=== PATIENT | female | born 1960 | race Caucasian/White ===

== ENCOUNTER → 2020-06-27 17:31 | Outpatient (CLI) | payer OTHER, SELFPAY ==
[2020-06-27 18:41] LABS: Chloride 105 mmol/L (98-107); Potassium 4.6 mmoL/L (3.5-5.1); Sodium 139 mmol/L (136-145)
[2020-06-27 18:44] LABS: Anion Gap 12.6 mEq/L (5-15); Blood Urea Nitrogen 21 mg/dl (7-17); Calcium 10.2 mg/dl (8.4-10.2); Carbon Dioxide 26 mmol/L (22.0-30.0); Estimated Glomerular Filt Rate 57 ml/min (>60); GFR (African American) 69 ML/MIN (>60); Glucose 101 mg/dl (74-100)
[2020-06-27 19:00] LABS: T4 (Thyroxine) 14.3 ug/dl (5.53-11.0)
[2020-06-27 19:13] LABS: Thyroid Stimulating Hormone 0.97 uIU/mL (0.465-4.68)
== END ==
PROVIDERS: Visit Provider Family Medicine
DX: E03.9 Hypothyroidism, unspecified (principal)
CPT/HCPCS: 80048; 84436; 84443

== ENCOUNTER → 2022-01-11 16:52 | Outpatient (CLI) | payer OTHER, SELFPAY ==
[2022-01-11 15:18] LABS: Hemoglobin A1C 5.5 % (4.0-6.0)
== END ==
PROVIDERS: Visit Provider Family Medicine
DX: E11.9 Type 2 diabetes mellitus without complications (principal)
CPT/HCPCS: 83036

== ENCOUNTER → 2022-01-30 06:45 | Outpatient (CLI) | payer OTHER, SELFPAY ==
--- NOTE | 2022-01-30 06:47 | CT_ITS ---
FINAL REPORT CLINICAL HISTORY: right flank pain x1 month FINDINGS: Axial CT images of the abdomen and pelvis were obtained without intravenous contrast. Coronal reformatted images were also obtained.This study was performed with techniques to keep radiation doses as low as reasonably achievable (ALARA). Individualized dose reduction techniques using automated exposure control or adjustment of mA and/or kV according to the patient's size were employed. Abdomen: The lung bases are clear. The low-attenuation mass in the left hepatic lobe which is nonspecific. There are gallstones in the gallbladder. Moderate scarring is seen in the right kidney. There is mild scarring in the left kidney. There is a less than 3 mm nonobstructing right renal stone. A small calcification is seen in the left kidney. There are probable left renal parapelvic cysts. No adenopathy is seen. No inflammatory process is identified. Pelvis: Images of the pelvis reveal no evidence of ureteral dilation or ureteral stone. The patient is status post hysterectomy. The appendix is normal. No mass or abnormal fluid collection is identified. IMPRESSION: No obstructing renal or ureteral stone, or hydronephrosis. Nonspecific mass in the left hepatic lobe. Consider liver mass protocol CT or MRI. Reviewed, Interpreted and Dictated by Damion Gonzalez III, MD Transcribed by Lianet Ames Authenticated by Damion Gonzalez III, MD on 01/30/2022 07:51:31 AM [facility]
== END ==
PROVIDERS: PCP Family Medicine; Visit Provider Family Medicine
DX: R10.9 Unspecified abdominal pain (principal)
CPT/HCPCS: 74176

== ENCOUNTER → 2022-02-20 14:28 | Outpatient (CLI) | payer OTHER, SELFPAY ==
[2022-02-20 14:34] LABS: MANUAL DIFFERENTIAL MANUAL DIFFERENTIAL (MANUAL DIFF)
[2022-02-20 15:44] LABS: Chloride 105 mmol/L (98-107); Sodium 140 mmol/L (136-145)
[2022-02-20 15:45] LABS: Potassium 4.3 mmoL/L (3.5-5.1)
[2022-02-20 15:47] LABS: Alanine Aminotransferase 172 U/L (12-78); Alkaline Phosphatase 108 U/L (38-126); Amylase 66 U/L (30-110); Anion Gap 13.3 mEq/L (5-15); Aspartate Amino Transferase 74 U/L (14-36); Bilirubin,Total 0.6 mg/dl (0.2-1.3); Blood Urea Nitrogen 21 mg/dl (7-17); Carbon Dioxide 26 mmol/L (22.0-30.0); Estimated Glomerular Filt Rate 50 ml/min (>60); GFR (African American) 61 ML/MIN (>60); Glucose 99 mg/dl (74-100)
[2022-02-20 15:48] LABS: Albumin Level 4.4 g/dl (3.5-5.0); Albumin/Globulin Ratio 1.5 (1.1-1.8); Globulin 2.9 g/dL (1.3-3.2); Lipase 187 U/L (23-300); Total Protein,Serum 7.3 g/dl (6.3-8.2)
[2022-02-20 16:02] LABS: Basophils # 0.1 K/mm3 (0-0.2); Basophils % 1.1 % (0.1-2.0); Eosinophils # 0.1 K/mm3 (0.0-0.4); Eosinophils % 2.2 % (0.1-12.0); Hematocrit 43.5 % (37.0-47.0); Hemoglobin 14.6 g/dL (12.2-16.2); Lymphocytes # 1.4 K/mm3 (0.7-4.5); Lymphocytes % 24.4 % (10-50); Mean Corpuscular HGB Conc 33.5 g/dL (31.8-35.4); Mean Corpuscular Hemoglobin 31.4 pg (27.0-31.2); Mean Corpuscular Volume 93.5 fl (81-99); Monocytes # 0.3 K/mm3 (0.1-1.0); Neutrophils # 3.7 K/mm3 (1.8-7.8); Neutrophils % 66.4 % (37.0-80.0); Platelet Count 263 K/mm3 (142-424); Red Blood Count 4.65 M/mm3 (4.20-5.40); Red Cell Distribution Width 13.3 % (11.5-17.5); White Blood Count 5.6 K/mm3 (4.8-10.8)
[2022-02-20 18:34] LABS: Eosinophils % 3 % (0-3); Lymphocytes % 30 % (10-50); Monocytes % 6 % (2-9); Neutrophils % 60 % (42-76); Platelet Estimate Normal; RBC Morphology Normal; Total Cells Counted 100
== END ==
PROVIDERS: Visit Provider Surgery
DX: K80.20 Calculus of gallbladder without cholecystitis without obstruction (principal); R16.0 Hepatomegaly, not elsewhere classified
CPT/HCPCS: 36415; 80053; 82150; 83690; 85007; 85014; 85018; 85048; 85049

== ENCOUNTER → 2022-03-07 07:49 | Outpatient (CLI) | payer OTHER, SELFPAY ==
--- NOTE | 2022-03-07 07:50 | US_ITS ---
FINAL REPORT TECHNIQUE: Sonographic images of the right upper quadrant were obtained. CLINICAL HISTORY: mass on liver, left FINDINGS: There is a hyperechoic lesion in the left lobe of the liver measuring 2.1 cm. No other hepatic lesion is identified. There are gallstones in the gallbladder. No gallbladder wall thickening is identified. There is no pericholecystic fluid. The common duct measures 6 mm. The pancreatic tail is partially obscured by bowel gas. Otherwise, it has a normal appearance. The right kidney measures 7.0 cm in [id number] length. There is no hydronephrosis, mass, or stone. There is no right upper quadrant ascites. IMPRESSION: Nonspecific hyperechoic liver lesion. Gallstones. Reviewed, Interpreted and Dictated by Kathi Hardy MD Transcribed by Marilyn Artis Authenticated by Kathi Hardy MD on 03/07/2022 11:23:16 AM [facility]
--- NOTE | 2022-03-07 07:50 | CT_ITS ---
FINAL REPORT TECHNIQUE: Pre- and postcontrast images of the abdomen were performed by computed tomography. This study was performed with techniques to keep radiation doses as low as reasonably achievable (ALARA). Individualized dose reduction techniques using automated exposure control or adjustment of mA and/or kV according to the patient's size were employed. CLINICAL HISTORY: heptatic protocal CT, prior scan in January showed a liver lesion, Ultrasound done today as well FINDINGS: The lung bases are clear. There is a hypodense lesion in the left lobe of the liver measuring 2.3 cm. There is peripheral nodular discontinuous enhancement which fills central time consistent with hemangioma. Known gallstones are not well seen on CT. There is bilateral, right greater than left renal cortical scarring. There is a left parapelvic renal cyst. Bilateral nonobstructing renal stones are identified. There is no hydronephrosis. The spleen, pancreas, and adrenals are unremarkable. The GI tract shows no acute abnormality. There is no evidence of lymphadenopathy or ascites. No acute osseous abnormality is identified. IMPRESSION: Hepatic hemangioma. No follow-up is needed. Bilateral renal cortical scarring, possibly related to prior pyelonephritis or reflux nephropathy. Reviewed, Interpreted and Dictated by Kathi Hardy MD Transcribed by Marilyn Artis Authenticated by Kathi Hardy MD on 03/07/2022 11:20:16 AM [facility]
== END ==
PROVIDERS: PCP Family Medicine; Visit Provider Surgery
DX: K80.20 Calculus of gallbladder without cholecystitis without obstruction (principal); R16.0 Hepatomegaly, not elsewhere classified
CPT/HCPCS: 74170; 76705; Q9967